=== PATIENT | female | born 1970 | race African-American/Black ===

== ENCOUNTER 2017-01-06 12:30 | Emergency (ER) | payer BC, OTHER ==
[~2017-01-06] VITALS: Ht 162.6 cm; Wt 169.1 kg
[~2017-01-06 12:30] MED LIST: ALBU1AER INH; DICL75 PO; HYDR-3533 PO; ROBA750T3 PO
[2017-01-06 12:34] VITALS: BP 139/84; PULSE 75; RESP 15; TEMP 97.9; O2SAT 95
[2017-01-06] MEDS ORDERED: SUMA6P SQ (12:44)
[2017-01-06] MEDS ORDERED: ALBUAER3 INH (12:44)
--- NOTE | 2017-01-06 12:53 | PD ---
HPI Chief Complaint: Injury Time Seen by Provider: 12:41 Travel History International Travel<30 days: No Contact w/Intl Traveler<30days: No Traveled to known affect area: No History of Present Illness HPI 46-year-old female presents to the emergency room for evaluation of left fifth toe pain and swelling after drinking last night. Patient states she had her toe against a chair while walking last night and had immediate pain. States it was severe so she went to bed. She elevated it but did not apply ice or take any medication. States when she woke up this morning it was too painful to put on her shoes so she decided to have her toe checked in the ER. Patient denies paresthesias. No history of diabetes. PFSH Past Medical History Asthma: Yes Migraines: Yes ?: Not Past Surgical History Gynecologic Surgery: Yes (BREAST BIOPSY) Thoracic Surgery: Yes (ARM) Social History Alcohol Use: Yes ("LIMITED") Tobacco Use: No Substance Use: No Allergies-Medications (Allergen,Severity, Reaction): Coded Allergies: No Known Allergies (Unverified , 01/06/17) Reported Meds & Prescriptions Reported Meds & Active Scripts Active Reported Proair Hfa 8.5 GM Inh (Albuterol Sulfate) 90 Mcg/Act Aer 1 Puff INH Q4H PRN 108 mcg/actuation Imitrex Inj (Sumatriptan Succinate) 6 Mg/0.5 Ml Inj 6 Mg SQ ONCE PRN May repeat dose in 1 hour if needed. Review of Systems Except as stated in HPI: all other systems reviewed are Neg Physical Exam Narrative GENERAL: Well-nourished, well-developed female in no acute distress. Afebrile. Ambulatory. SKIN: Focused skin assessment warm/dry. Mild ecchymosis around the proximal left fifth toe. HEAD: Normocephalic. EYES: No scleral icterus. No injection or drainage. NECK: Supple, trachea midline. No JVD or lymphadenopathy. CARDIOVASCULAR: Regular rate and rhythm without murmurs, gallops, or rubs. RESPIRATORY: Breath sounds equal bilaterally. No accessory muscle use. MUSCULOSKELETAL: No cyanosis, or obvious edema. Limited range of motion of the fifth toe secondary to pain. Less than 2 second capillary refill distally. Tenderness to palpation proximally. No obvious deformity. Data Data Last Documented VS Vital Signs Date Time Temp Pulse Resp B/P (MAP) Pulse Ox O2 Delivery O2 Flow Rate FiO2 01/06/17 12:34 97.9 75 15 139/84 (102) 95 Orders Orders Splint Or Brace Apply/Monitor (01/06/17 12:48) MDM Medical Decision Making Medical Screen Exam Complete: Yes Emergency Medical Condition: Yes Medical Record Reviewed: Yes Differential Diagnosis Toe fracture, sprain, strain, contusion Narrative Course 46-year-old female presents to the emergency room for evaluation of left fifth toe pain and swelling after hitting it on a chair last night. Patient states pain persist this morning and made it difficult for her to apply issue so she decided to come to the emergency room. No paresthesias. Left toe is neurovascularly intact with 2 point discrimination and less than 2 second capillary refill. There is mild ecchymosis and tenderness to palpation of the proximal toe. Patient was informed that x-rays will not change the treatment and opted to forego them at this time. This will be treated as toe fracture. Toe was iwona taped and patient was placed in postop shoe. She was given expected course of healing. Told to follow-up with a primary care physician as needed or return for worsening symptoms. She understands and agrees to plan. Diagnosis Primary Impression: Fracture of fifth toe, left, closed Qualified Codes: S92.502A - Displaced unspecified fracture of left lesser toe( s), initial encounter for closed fracture Referrals: [employer] [facility] Additional Instructions: Rest and drink plenty of fluids. Keep splint on the shown to facilitate healing. Take ibuprofen with food as directed, as needed for pain. Apply ice to the affected area for 20 minutes at a time, as needed for pain and swelling. Follow-up with a primary care physician as needed. Return to the emergency room for worsening symptoms. Disposition: 01 DISCHARGE HOME Condition: Stable Mellisa Evangelista Jan 06, 2017 12:53
== END 2017-01-06 13:25 | disposition home or self-care (01) ==
LOC: PHEFT 12:30
DX: S92.502A Displaced unspecified fracture of left lesser toe(s), initial encounter for closed fracture (principal); W22.03XA Walked into furniture, initial encounter; Y93.01 Activity, walking, marching and hiking
CPT/HCPCS: 99282; L3260